=== PATIENT | female | born 1960 | race Caucasian/White ===

== ENCOUNTER 2021-10-08 16:00 | Inpatient (IN) ==
[2021-10-08] MEDS ORDERED: *HR* Propofol 200 MG/20 ML VIAL IVP ONE (19:29)
[2021-10-08] MEDS ORDERED: 0.9 % Sodium Chloride 250 ML ONE (20:32)
[2021-10-08] MEDS ORDERED: ceFAZolin 1,000 MG in Water for inj. (sterile) 10 ML IVP ONE (21:50)
[2021-10-08] MEDS ORDERED: Tdap (Boostrix) Vaccine 0.5 ML SYRINGE IM ONE (22:35)
[2021-10-08] MEDS ORDERED: Naloxone 0.4 MG/ML INJ IVP PRN (23:49)
[2021-10-08] MEDS ORDERED: Ondansetron 4 MG/2 ML VIAL IVP PRN (23:49)
[2021-10-08] MEDS ORDERED: Ipratropium/Albuterol Neb 3 ML IH PRN (23:51)
[2021-10-08] MEDS ORDERED: Melatonin 3 MG TABLET PO PRN (23:52)
[2021-10-09] MEDS ORDERED: *HR* Heparin 5,000 UNIT/ML VIAL SQ SCH (01:00)
[2021-10-09] MEDS ORDERED: Perflutren Lipid Microsphere 1.3 ML in 0.9 % Sodium Chloride 8.7 ML IVP PRN ×2 (01:34→16:18)
[2021-10-09 01:43] LABS: Bilirubin,Urine Negative (Negative); Blood,Urine Negative (Negative); Clarity,Urine Clear (Clear); Color,Urine Colorless (Yellow); Glucose,Urine (UA) Normal (Normal); Ketones,Urine Negative (Negative); Leukocyte Esterase,Urine Negative (Negative); Nitrite,Urine Negative (Negative); PH,Urine 6.5 pH Units (5.0-8.0); Protein,Urine Negative (Neg-Trace); Urobilinogen,Urine Normal (Normal)
[2021-10-09] MEDS: 0.9 % Sodium Chloride 1,000 ML IVC SCH ×2 (01:47→11:31)
[2021-10-09 01:50] LABS: Basophils % 0.6 %; Hemoglobin 7.4 g/dL (11.5-15.4); Red Cell Distribution Width 20.2 % (11.5-14.5)
[2021-10-09 01:52] LABS: Eosinophils # 0.1 K/mcL (0.0-0.6); Eosinophils % 2.7 %; Hematocrit 27.4 % (35.3-44.9); Immature Granulocytes % 0.4 % (0-4); Lymphocytes # 1.6 K/mcL (0.6-4.6); Lymphocytes % 30.9 %; Mean Corpuscular Hemoglobin 21.6 pg (28.0-33.3); Mean Corpuscular Volume 80.1 fL (83.0-100.0); Mean Platelet Volume 7.8 fL (9.4-12.4); Monocytes # 0.6 K/mcL (0.0-1.3); Monocytes % 11.8 %; Neutrophils # 2.8 K/mcL (1.6-8.9); Platelet Count 355 K/mcL (140-400); Red Blood Count 3.42 M/mcL (3.82-4.97); Segmented Neutrophils % 53.6 %; White Blood Count 5.2 K/mcL (4.3-11.1)
[2021-10-09 01:57] LABS: INR 1.1; Prothrombin Time 12.2 Seconds (9.4-12.1)
[2021-10-09 01:58] LABS: Amphetamine Screen,Urine Negative ng/mL (Cutoff=1000); Barbiturate Screen,Urine Negative ng/mL (Cutoff=200); Benzodiazepines Screen,Urine Positive ng/mL (Cutoff=200); Cannabinoid Screen,Urine Negative ng/mL (Cutoff = 50); Cocaine Screen,Urine Negative ng/mL (Cutoff= 300); Opiate Screen,Urine Negative ng/mL (Cutoff=300); Phencyclidine Screen,Urine Negative ng/mL (Cutoff=25)
[2021-10-09 02:02] LABS: Adenovirus Not Detected (Not Detect); Bordetella Pertussis Not Detected (Not Detect); Chlamydophila pneumoniae Not Detected (Not Detect); Coronavirus 229E Not Detected (Not Detect); Coronavirus HKU1 Not Detected (Not Detect); Coronavirus NL63 Not Detected (Not Detect); Coronavirus OC43 Not Detected (Not Detect); Human Metapneumovirus Not Detected (Not Detect); Human Rhinovirus/Enterovirus Not Detected (Not Detect); Influenza A Subtype 2009 H1 Not Detected (Not Detect); Influenza B Not Detected (Not Detect); Mycoplasma pneumoniae Not Detected (Not Detect); Parainfluenza Virus 1 Not Detected (Not Detect); Parainfluenza Virus 2 Not Detected (Not Detect); Parainfluenza Virus 3 Not Detected (Not Detect); Parainfluenza Virus 4 Not Detected (Not Detect); Respiratory Syncytial Virus Not Detected (Not Detect); SARS-CoV-2 Not Detected (Not Detect)
[2021-10-09 02:11] LABS: Anisocytosis 2+ (Not Present); Hypochromasia Present (Not Present); Platelet Estimate Normal (Normal)
[2021-10-09 02:12] LABS: BUN/Creatinine Ratio 8 (6-26); Blood Urea Nitrogen 4 mg/dL (8-23); Calcium 8.3 mg/dL (8.6-10.3); Carbon Dioxide 25 mEq/L (23-29); Chloride 105 mEq/L (98-107); Glucose 94 mg/dL (70-105); Osmolality,Calculated 279 (280-300); Potassium 3.8 mEq/L (3.5-5.1); Sodium 136 mEq/L (136-145); eGFR For African Americans > 60 (> 60); eGFR For Non-African Americans > 60 (> 60)
[2021-10-09 04:59] LABS: Immature Reticulocyte % 24.7 % (11.0-38.0); Retculocyte # 0.06 M/mcL (0.05-0.10); Reticulocyte % 1.8 % (1.6-2.8)
[2021-10-09 05:14] LABS: Iron 14 mcg/dL (50-170)
[2021-10-09 05:41] LABS: Folate 20.2 ng/mL (3.0-16.0)
[2021-10-09] MEDS ORDERED: Ondansetron 4 MG/2 ML VIAL ONE (12:28)
[2021-10-09] MEDS ORDERED: Lidocaine -MPF 2% 5 ML VIAL ONE (12:28)
[2021-10-09] MEDS ORDERED: *HR* Propofol 200 MG/20 ML VIAL IVP ONE ×2 (12:29→13:00)
[2021-10-09] MEDS ORDERED: *HR* FentaNYL (PF) 100 MCG/2 ML VIAL ONE (12:29)
[2021-10-09] MEDS ORDERED: *HR* Midazolam HCl 2 MG/2 ML VIAL ONE (12:29)
[2021-10-09] MEDS ORDERED: ROPIVACAINE/PF/NS 0.25% 1 EACH SYRINGE INTRAART ONE (13:00)
[2021-10-09] MEDS ORDERED: Ropivacaine/PF 0.5% 30 ML VIAL ONE (13:00)
[2021-10-09] MEDS ORDERED: CeFAZolin Syr 2,000MG/20 ML 2,000 MG/20 ML SYRINGE IVPB ONE ×2 (13:27→16:18)
[2021-10-09] MEDS ORDERED: Ringers Solution, Lactated 1,000 ML IVC SCH (13:30)
[2021-10-09] MEDS ORDERED: Famotidine 20 MG/2 ML VIAL ONE (14:09)
[2021-10-09] MEDS ORDERED: *HR* HYDROmorphone PF 0.5 MG/0.5 ML SYRINGE IVP PRN (14:49)
[2021-10-09] MEDS ORDERED: *HR* OxyCODONE Immed Rel 5 MG TABLET PO PRN (14:49)
[2021-10-09] MEDS ORDERED: Ondansetron 4 MG/2 ML VIAL IVP PRN ×2 (14:49→16:18)
[2021-10-09] MEDS ORDERED: *HR* Succinylcholine 200 MG/10 ML VIAL IVP ONE (14:58)
[2021-10-09] MEDS ORDERED: Famotidine 20 MG TABLET PO PRN (15:56)
[2021-10-09] MEDS ORDERED: Albuterol 2.5 MG/3 ML NEBULIZER IH PRN (15:56)
[2021-10-09] MEDS ORDERED: Ipratropium/Albuterol Neb 3 ML IH PRN (16:18)
[2021-10-09] MEDS ORDERED: Melatonin 3 MG TABLET PO PRN (16:18)
[2021-10-09] MEDS ORDERED: 0.9 % Sodium Chloride 1,000 ML IVC SCH (16:18)
[2021-10-09] MEDS ORDERED: Naloxone 0.4 MG/ML INJ IVP PRN (16:18)
[2021-10-09] MEDS: Ringers Solution, Lactated 1,000 ML IVC SCH (16:57)
[2021-10-09] MEDS ORDERED: Ringers Solution, Lactated 500 ML IVC ONE (19:45)
[2021-10-09] MEDS: Acetaminophen 325 MG TABLET PO PRN (20:18)
[2021-10-09] MEDS: CeFAZolin 2,000 MG/120 ML BAG IVPB SCH (21:55)
[2021-10-10 02:05] LABS: Hemoglobin 6.5 g/dL (11.5-15.4)
[2021-10-10 02:07] LABS: Hematocrit 24.4 % (35.3-44.9); Immature Granulocytes % 0.4 % (0-4); Lymphocytes # 0.6 K/mcL (0.6-4.6); Lymphocytes % 12.8 %; Mean Corpuscular HGB Conc 26.6 g/dL (31.6-35.5); Mean Corpuscular Hemoglobin 21.7 pg (28.0-33.3); Mean Corpuscular Volume 81.6 fL (83.0-100.0); Mean Platelet Volume 8.2 fL (9.4-12.4); Monocytes # 0.5 K/mcL (0.0-1.3); Monocytes % 11.1 %; Neutrophils # 3.7 K/mcL (1.6-8.9); Platelet Count 316 K/mcL (140-400); Red Blood Count 2.99 M/mcL (3.82-4.97); Red Cell Distribution Width 20.1 % (11.5-14.5); Segmented Neutrophils % 75.7 %; White Blood Count 4.9 K/mcL (4.3-11.1)
[2021-10-10 02:32] LABS: BUN/Creatinine Ratio 6 (6-26); Blood Urea Nitrogen 3 mg/dL (8-23); Carbon Dioxide 27 mEq/L (23-29); Chloride 106 mEq/L (98-107); Glucose 118 mg/dL (70-105); Osmolality,Calculated 286 (280-300); Potassium 3.7 mEq/L (3.5-5.1); Sodium 139 mEq/L (136-145); eGFR For African Americans > 60 (> 60); eGFR For Non-African Americans > 60 (> 60)
[2021-10-10 03:11] LABS: Anisocytosis 3+ (Not Present); Hypochromasia Present (Not Present); Microcytosis Present (Not Present); Platelet Estimate Normal (Normal)
[2021-10-10] MEDS ORDERED: 0.9 % Sodium Chloride 250 ML ONE (04:12)
[2021-10-10] MEDS: CeFAZolin 2,000 MG/120 ML BAG IVPB SCH ×2 (05:07→16:28)
[2021-10-10] MEDS: Aspirin Enteric Coated 81 MG Tablet PO SCH (08:21)
[2021-10-10] MEDS: Valbenazine Tosylate [Ingrezza] 40 MG Capsule PO SCH (08:23)
[2021-10-10] MEDS: Ringers Solution, Lactated 1,000 ML IVC SCH (09:07)
[2021-10-10 15:31] LABS: Hematocrit 29.2 % (35.3-44.9)
[2021-10-10 15:36] LABS: Hemoglobin 8.1 g/dL (11.5-15.4)
[2021-10-10] MEDS ORDERED: Morphine Sulfate 2 MG/ML SYRINGE IVP ONE (16:40)
[2021-10-10] MEDS: Budesonide/Formoterol 80/4.5 1 PUFF INH IH SCH (19:48)
[2021-10-10] MEDS: Acetaminophen 325 MG TABLET PO PRN (21:12)
[2021-10-10] MEDS: diazePAM 5 MG TABLET PO PRN (21:12)
[2021-10-11] MEDS: CeFAZolin 2,000 MG/120 ML BAG IVPB SCH ×2 (01:10→08:50)
[2021-10-11 07:08] VITALS: TEMP 98.7
[2021-10-11] MEDS: Budesonide/Formoterol 80/4.5 1 PUFF INH IH SCH (07:45)
[2021-10-11] MEDS: Aspirin Enteric Coated 81 MG Tablet PO SCH (08:49)
[2021-10-11] MEDS: Valbenazine Tosylate [Ingrezza] 40 MG Capsule PO SCH (08:51)
[2021-10-11 09:25] LABS: Eosinophils % 1.5 %; Hemoglobin 8.8 g/dL (11.5-15.4); Nucleated Red Blood Cells 0.7 /100 WBC (0); Red Cell Distribution Width 19.9 % (11.5-14.5)
[2021-10-11 09:27] LABS: Basophils % 0.6 %; Eosinophils # 0.1 K/mcL (0.0-0.6); Hematocrit 31.3 % (35.3-44.9); Immature Granulocytes % 0.6 % (0-4); Lymphocytes # 1.4 K/mcL (0.6-4.6); Mean Corpuscular HGB Conc 28.1 g/dL (31.6-35.5); Mean Corpuscular Hemoglobin 23.2 pg (28.0-33.3); Mean Corpuscular Volume 82.6 fL (83.0-100.0); Monocytes # 0.4 K/mcL (0.0-1.3); Monocytes % 7.2 %; Neutrophils # 3.5 K/mcL (1.6-8.9); Platelet Count 280 K/mcL (140-400); Red Blood Count 3.79 M/mcL (3.82-4.97); Segmented Neutrophils % 65.1 %; White Blood Count 5.4 K/mcL (4.3-11.1)
[2021-10-11 09:38] LABS: BUN/Creatinine Ratio 5 (6-26); Blood Urea Nitrogen 2 mg/dL (8-23); Calcium 8.3 mg/dL (8.6-10.3); Carbon Dioxide 28 mEq/L (23-29); Chloride 103 mEq/L (98-107); Glucose 143 mg/dL (70-105); Osmolality,Calculated 283 (280-300); Potassium 3.6 mEq/L (3.5-5.1); Sodium 137 mEq/L (136-145); eGFR For African Americans > 60 (> 60); eGFR For Non-African Americans > 60 (> 60)
[2021-10-11 09:55] LABS: Microcytosis Present (Not Present); Platelet Estimate Normal (Normal)
[2021-10-11 09:56] LABS: Anisocytosis 2+ (Not Present); Hypochromasia Present (Not Present)
[2021-10-11 11:33] VITALS: BP 115/75; PULSE 81; O2SAT 97
[2021-10-11] MEDS: diazePAM 5 MG TABLET PO PRN (13:17)
[2021-10-12 10:01] LABS: % Iron Saturation 4 % (15-50); Transferrin 268 mg/dL (200-400)
== END 2021-10-11 16:05 | disposition home health service (06) | DRG 494 ==
LOC: EMEROOARM 16:00 → 3NENU 16:00
PROVIDERS: ADMIT Internal Medicine; ATTEND Internal Medicine